=== PATIENT | female | born 2000 | race Caucasian/White ===

== ENCOUNTER 2021-03-19 16:13 | Inpatient (IN) | payer BC ==
[~2021-03-19] VITALS: Ht 165.1 cm; Wt 74.4 kg
[2021-03-19 17:18] LABS: HEMOGLOBIN 11.8 gm/dl (12.3-15.3); RED BLOOD COUNT 4.15 M/UL (4.00-5.10); WHITE BLOOD COUNT 7.5 K/UL (4.5-11.0)
[2021-03-19] MEDS ORDERED: PRENATAL VITAM1 EAC8 PO (17:29)
[2021-03-20] MEDS ORDERED: IBUPROFEN800 MG PO (11:26)
[2021-03-20] MEDS ORDERED: DOCUSATE SODIU100 MG PO (11:26)
[2021-03-20] MEDS ORDERED: HYDROCODON-ACE1 EAC4 PO (16:46)
[2021-03-21 08:34] LABS: HEMOGLOBIN 10.4 gm/dl (12.3-15.3)
== END 2021-03-22 11:29 | disposition home or self-care (01) | DRG 807 ==
LOC: GENOP 16:13 → OB 16:28
PROVIDERS: Obstetrics & Gynecology; ADMIT Obstetrics & Gynecology
PROC: 4A1HXCZ Monitoring of Products of Conception, Cardiac Rate, External Approach (ICD-10-PCS; 2021-03-19)
PROC: 10D07Z6 Extraction of Products of Conception, Vacuum, Via Natural or Artificial Opening (ICD-10-PCS; principal; 2021-03-20)
PROC: 0UQMXZZ Repair Vulva, External Approach (ICD-10-PCS; 2021-03-20)
PROC: 10907ZC Drainage of Amniotic Fluid, Therapeutic from Products of Conception, Via Natural or Artificial Opening (ICD-10-PCS; 2021-03-20)
DX: O48.0 Post-term pregnancy (principal); Z37.0 Single live birth; O70.0 First degree perineal laceration during delivery; O99.824 Streptococcus B carrier state complicating childbirth; Z20.822 Contact with and (suspected) exposure to COVID-19; Z3A.40 40 weeks gestation of pregnancy; Z88.0 Allergy status to penicillin; B95.1 Streptococcus, group B, as the cause of diseases classified elsewhere
CPT/HCPCS: 36415; 51702; 81001; 82800; 85014; 85018; 85025; 90715; J0595; J2405; J2590; J3370; J7070